=== PATIENT | female | born 1960 | race Caucasian/White ===

== ENCOUNTER 2019-05-27 15:06 | Emergency (ER) | payer OTHER ==
[~2019-05-27] VITALS: Ht 172.7 cm; Wt 81.2 kg
[2019-05-27] MEDS ORDERED: ondansetron/PF 4mg/2ml inj IV ONE (15:25)
[2019-05-27] MEDS ORDERED: LORazepam 2 mg/ml vial IV ONE (15:25)
[2019-05-27] MEDS ORDERED: glucagon, human recombinant 4 MG in normal saline 100ml IV soln 100 ML IV ONE ×2 (15:25)
[2019-05-27] MEDS ORDERED: glucagon, human recombinant 1mg kit IV ONE (15:40)
--- NOTE | 2019-05-27 16:48 | NUR ---
Pepsi given for po trial as ordered by CHRIS Galvez.
[2019-05-27 18:07] VITALS: BP 126/84
== END 2019-05-27 18:10 | disposition home or self-care (01) ==
LOC: ER 15:07
DX: T17.228A Food in pharynx causing other injury, initial encounter (principal); R11.10 Vomiting, unspecified; Z88.1 Allergy status to other antibiotic agents; Y92.89 Other specified places as the place of occurrence of the external cause
CPT/HCPCS: 96374; 96375; 99283; J1610; J2060; J2405